=== PATIENT | female | born 1955 | race Caucasian/White ===

== ENCOUNTER 2016-12-19 09:56 | Inpatient (IN) | payer BC, OTHER ==
[2016-12-19] MEDS: NORMAL SALINE 10 ML SYRINGE FLUSH IVP PRN ×3 (10:08→10:24)
[2016-12-19] MEDS ORDERED: ONDANSETRON 4 MG/2 ML VIAL IVP ONE (10:12)
[2016-12-19] MEDS ORDERED: Sodium Chloride 0.9% 1,000 ML, Magnesium Sulfate 2gm (Premix) 50 ML with Multivitamin I... IV ONE ×5 (10:12)
[2016-12-19] MEDS ORDERED: Sodium Chloride 0.9% 1,000 ML with Multivitamin Inj 10 ML, Thiamine Inj 100 MG, Folic A... IV ONE ×5 (10:15)
[2016-12-19] MEDS ORDERED: LORazepam 2 MG/1 ML VIAL IVP ONE ×2 (10:20→12:38)
--- NOTE | 2016-12-19 10:20 | PDOC ---
Gen Adult / Medical Screen HPI - General Chief Complaint: General Medical Stated Complaint: Detox Date Seen by Provider: 12/19/16 Time Seen by Provider: 10:14 Source: POSITIVE: Patient Exam Limitations: POSITIVE: No limitations Nurse's Notes Reviewed & Considered: Yes - Indicators Temperature Between 95 and 101 Degrees: Yes Respirations Between 12 and 20: Yes Blood Pressure Between 100-165 (sys) and 60-100 (deng): Yes Pulse Range Between 60-105 (100 for age > 60 years): Yes Severe Pain (Greater than 5/10 Reported): No Chest or Abdominal Pain: No Inability to Walk: No Pt Reports Active High Risk Cond. (TB/Hepatitis/HIV/Chemo): No Abnormal Mental Status: No - History of Present Illness Initial Comments: Patient comes in today wanting to detox from alcohol. Patient had her last drink at 2000 hrs. last night. She started drinking yesterday at approximately 1 PM during tilt 1999 hrs. and drank a pint of tequila. She drinks every day, usually tequila. Now she is having shakiness, nausea. Denies any fever chills sweats, no diarrhea, no chest pain or shortness of breath, no hematuria or dysuria. Timing: REPORTS: Gradual Duration: 4-6 hours Similar Symptoms Previously: Yes (withdrawal from alcohol) Recent Care Received: REPORTS: Denies Any Prior Injuries Related to Current Complaint?: No - Patient Home Medications Home Medications: Home Medications Estradiol 1 mg PO DAILY 12/19/16 Valsartan/Hydrochlorothiazide [Valsartan-Hctz 160-12.5 mg Tab] 1 each PO DAILY 12/19/16 - Patient Allergies Allergies/Adverse Reactions: Allergies Allergy/AdvReac Type Severity Reaction Status Date / Time No Known Allergies Allergy Verified 12/19/16 10:00 Past Medical History - heen HEENT History: Denies History Cardiovascular History: Hypertension Respiratory History: Other (please comment) Additional Respiratory History: previous smoker Gastrointestinal History: Denies History Genitourinary History: Denies History Endocrine History: Denies History Musculoskeletal History: Denies History Neurological History: Denies History Blood Disorders: Denies History Psychiatric History: Substance Abuse Female Reproductive History: Hysterectomy Obstetrical History: Denies History Cancer History: Denies History In Past Year Been Physically Harmed or Verbally Threatened: No History of MDRO: No Tobacco Use: Former Smoker Alcohol Use: Heavy Type of alcohol normally used: Hard Liquor How much alcohol do you normally drink a day?: 1+ mamie canales daily Substance Use Type: None Previous Surgical History: Yes Type / Date of Surgery: hyster. left knee. tonsils Significant Family History: No pertinent family hx ROS - Limitations ROS Limitations: No Limitations Constitution: REPORTS: Denies Symptoms Cardiovascular: REPORTS: Denies Cardiac Symptoms Respiratory: REPORTS: Denies Resp Symptoms Neurological: REPORTS: Other (Tremulousness) Gastrointestinal: REPORTS: Nausea Endocrine: REPORTS: Denies Symptoms Musculoskeletal: REPORTS: Denies MS Symptoms Genitourinary: REPORTS: Denies Symptoms Eyes: REPORTS: Denies Symptoms ENT: REPORTS: Denies Symptoms Skin: REPORTS: Denies Skin Symptoms Lympathic: REPORTS: Denies Lympathic Symptoms Immunologic: POSITIVE: Denies Symptoms Psychiatric: POSITIVE: Anxiety Gen Adult/Medical Screen Exam - General Appearance General Appearance: POSITIVE: Alert, Cooperative, No Evidence of Trauma, Anxious - HEENT HEENT: POSITIVE: Head Inspection Nml, Eyes Inspection Nml, Ears Inspection Nml, Nose Inspection Nml, Oral/Dental Inspect. Nml, Pharynx Inspect. Nml, PERRL, EOMI - Pupils Pupil Size: 5 mm: Bilateral - Neck Neck: POSITIVE: Normal Inspection, Thyroid Normal - Respiratory Respiratory: POSITIVE: No Respiratory Distress, Breath Sounds Normal, Chest Non- Tender - Cardiovascular Cardiovascular: POSITIVE: Regular Rate & Rhythm, No Murmur, No Gallop, PMI Normal Peripheral Pulses: Radial (R): 2+, Radial (L): 2+ - Abdomen Abdomen: Soft: (All Quadrants), Normal Bowel Sounds: (All Quadrants), Denies Tenderness: (All Quadrants), No Splenomegaly: (All Quadrants), No Hepatomegaly: (All Quadrants) - Back Back: POSITIVE: Normal Inspection - Neurological / Psychological Mental Status: POSITIVE: Mood Normal, Affect Normal Orientation: POSITIVE: Oriented x 3 Reflexes: Patellar (R): 3+, Patellar (L): 3+, Radial (R): 3+, Radial (L): 3+ - Skin Skin: POSITIVE: Normal Color, Warm, Dry, No Rash - Extremities Extremity: Non-Tender: (All Extremities), Normal ROM: (All Extremities), Normal Inspection: (All Extremities) Procedures - Laceration/Wound Repair Did patient have a laceration repair: No Gen Adlt/Medical Scrn Progress - Results Reviewed by me Lab Results Reviewed: Yes Lab Results:: Laboratory Results 12/19/16 Range/Units 10:08 WBC 4.49 L (4.8-10.8) 10^3/uL RBC 4.31 (4.20-5.40) 10^6/uL Hgb 13.6 (12.0-16.0) g/dL Hct 39.5 (37.0-47.0) % MCV 91.6 (81-99) FL MCH 31.6 H (27-31) PG MCHC 34.4 (33-37) g/dL RDW Std Deviation 50.8 H (39-50) fL RDW Coeff of Stevan 15.5 H (11.5-14.5) % Plt Count 236 (140-350) 10*3/uL MPV 9.8 (7.4-12.2) FL Immature Gran % (Auto) 0.2 (0-5) % Neut % (Auto) 55.5 (50-80) % Lymph % (Auto) 37.4 (10-50) % [place] % (Auto) 5.3 (5-15) % Eos % (Auto) 0.9 (0-8) % Baso % (Auto) 0.7 (0-1) % Immature Gran # (Auto) 0.01 10*3/UL Neut # (Auto) 2.49 10*3/UL Lymph # (Auto) 1.68 10*3/uL [place] # (Auto) 0.24 L (0.3-0.8) 10*3/UL Eos # (Auto) 0.04 10*3/UL Baso # (Auto) 0.03 10*3/UL WBC Morphology Comment Normal morphology (NORM) Plt Morphology Comment Normal morphology (NORM) RBC Morph Comment Normal morphology (NORM) Sodium 138 (135-145) meq/L Potassium 4.4 (3.8-5.2) meq/L Chloride 98 (98-112) meq/L Carbon Dioxide 25 (23-33) meq/L Anion Gap 15 (5-20) BUN 25 H (7-22) mg/dL Creatinine 0.8 (0.50-1.20) mg/dL Estimated GFR > 60 (>60 ml/min/1.73m(2)) BUN/Creatinine Ratio 31.25 H (6-20) Glucose 119 H (78-110) mg/dL Calculated Osmolality 290.0 (267-292) mOsm/kg Calcium 9.7 (8.7-10.7) mg/dL Magnesium 1.7 (1.6-2.4) mg/dL Total Bilirubin 1.2 (0.3-1.2) mg/dL AST 167 H (8-39) IU/L ALT 87 H (9-52) IU/L Alkaline Phosphatase 107 (38-126) IU/L Total Protein 7.5 (6.1-8.0) g/dL Albumin 4.6 (3.5-4.8) g/dL Globulin 2.9 (2.50-4.10) g/dL Albumin/Globulin Ratio 1.50 (1.3-2.0) mg/g TSH 0.328 (0.2700-4.2000) uIU/mL Free T4 1.02 (0.93-1.71) ng/dL Serum Alcohol 44 H (0-10) mg/dL - Patient's Progress Pain Medication Addressed: POSITIVE: Not Applicable Re-Examine Time: 12:39 Status: POSITIVE: Unchanged MDM / ED Course: Patient was examined, an IV started, with blood drawn and sent to the lab for studies. Review of her EKG is unremarkable review of her labs are unremarkable , she continued to have anxiety requiring multiple doses of Ativan to control her anxiety. Assessment: Acute alcohol withdrawal. Plan: Admission. - Consult Consult (If Yes, Name of Consulting MD & Time Called): Yes (Dr Lao) Consulting MD will see pt:: POSITIVE: [facility] [place] Admit Counseled: POSITIVE: Patient, RE: DX Patient Care Time - Estimated PCT Patient Care Time (In Minutes): 30 Vital Signs - Recent Vital Signs Vital Signs: Vital Signs (Last 8 hours) Temp Pulse Resp BP Pulse Ox 12/19/16 09:58 97.5 F 105 H 18 151/99 92 - VS Reviewed Vital Signs Reviewed: Yes Discharge Clinical Impression: Alcohol withdrawal Discharge Disposition: Admit to Observation Condition: Stable Follow Up With: NONE,NONE [Primary Care Provider] - Date Decision to Admit to Inpatient: 12/19/16 Time Decision to Admit to Inpatient: 12:41
[2016-12-19 10:25] LABS: BASOPHILS # (AUTO) 0.03 10*3/UL; BASOPHILS % (AUTO) 0.7 % (0-1); EOSINOPHILS % (AUTO) 0.9 % (0-8); HEMATOCRIT 39.5 % (37.0-47.0); HEMOGLOBIN 13.6 g/dL (12.0-16.0); IMM GRAN % (AUTO) 0.2 % (0-5); IMM GRAN# (AUTO) 0.01 10*3/UL; LYMPHOCYTES # (AUTO) 1.68 10*3/uL; LYMPHOCYTES % (AUTO) 37.4 % (10-50); MEAN CORPUSCULAR HEMOGLOBIN 31.6 PG (27-31); MEAN CORPUSCULAR HGB CONC 34.4 g/dL (33-37); MEAN PLATELET VOLUME 9.8 FL (7.4-12.2); MONOCYTES # (AUTO) 0.24 10*3/UL (0.3-0.8); MONOCYTES % (AUTO) 5.3 % (5-15); NEUTROPHILS # (AUTO) 2.49 10*3/UL; NEUTROPHILS % (AUTO) 55.5 % (50-80); RDW COEFFICIENT OF VARIATION 15.5 % (11.5-14.5); RED BLOOD COUNT 4.31 10^6/uL (4.20-5.40); WHITE BLOOD COUNT 4.49 10^3/uL (4.8-10.8)
[2016-12-19 10:30] LABS: ASPARTATE AMINO TRANSFERASE 167 IU/L (8-39); BILIRUBIN,TOTAL 1.2 mg/dL (0.3-1.2); BLOOD UREA NITROGEN 25 mg/dL (7-22); BUN/CREATININE RATIO 31.25 (6-20); CALCIUM 9.7 mg/dL (8.7-10.7); CHLORIDE 98 meq/L (98-112); CREATININE 0.8 mg/dL (0.50-1.20); EST GLOMERULAR FILTRATION > 60 (>60 ml/min/1.73m(2)); GLUCOSE 119 mg/dL (78-110); MAGNESIUM 1.7 mg/dL (1.6-2.4); PLATELET MORPHOLOGY COMMENT NORMAL MORPHOLOGY (NORM); POTASSIUM 4.4 meq/L (3.8-5.2); SERUM ALCOHOL 44 mg/dL (0-10); SODIUM 138 meq/L (135-145); TOTAL PROTEIN 7.5 g/dL (6.1-8.0)
[2016-12-19 11:01] LABS: FREE T4 (FREE THYROXINE) 1.02 ng/dL (0.93-1.71)
[2016-12-19 12:52] LABS: CANNABINOID SCREEN,URINE NEGATIVE (NEG); COCAINE SCREEN NEGATIVE (NEG); METHAMPHETAMINES SCREEN,URINE NEGATIVE (NEG); URINE SAMPLE TYPE CLEAN CATCH URINE; URINE SPECIFIC GRAVITY - MAN 1.022
--- NOTE | 2016-12-19 13:21 | PDOC ---
History and Physical - History of Present Illness History of Present Illness: There is a very nice 60-year-old female from [place] presented to the ER with alcohol withdrawal past medical history is significant for cocaine, crack, marijuana use when she was young in her 20s tried heroin 1 time but no other IV drugs started drinking a few years ago she drinks a pint of tequila a day was sober for 6 months then restarted she did go withdrawals once before and did not need any intubation denies chest pain nausea vomiting at present time she is mildly tremulous Past Medical History Medical History: Hypertension, previous the drug use when she was young cocaine and marijuana crack and she did use heroin 1 time Family History: Reviewed an Not Pertinent Tobacco Use: Former Smoker Substance Use Type: None Medication / Allergies Home Medications: Home Medications Medication Instructions Recorded Confirmed Type Estradiol 1 mg PO DAILY 12/19/16 12/19/16 History Valsartan/Hydrochlorothiazide 1 each PO DAILY 12/19/16 12/19/16 History [Valsartan-Hctz 160-12.5 mg Tab] Allergies/Adverse Reactions: Allergies Allergy/AdvReac Type Severity Reaction Status Date / Time No Known Allergies Allergy Verified 12/19/16 10:00 Review of Systems - Review of Systems All Systems: Reviewed & No Additional Complaints Except as Stated - Respiratory Respiratory: DENIES: Negative System Review, Cough, Sputum, Dyspnea At Rest, Dyspnea with Exertion, Pleuritic Pain, Hemoptysis, Wheezing, Other, See HPI - Cardiovascular Cardiovascular: DENIES: Negative System Review, Chest Pain, Edema, Syncope, Palpitations, Orthopnea, Paroxysmal Nocturnal Dyspnea, Other, See HPI - Gastrointestinal Gastrointestinal / Abdominal: REPORTS: Nausea - Neurological Neurologic: REPORTS: Tremors Exam - Vitals Vital Signs: Vital Signs Temperature 97.5 F Temperature Source Temporal Artery Scan Pulse Rate [Pulse Oximeter] 102 Respiratory Rate 16 Blood Pressure [Left Arm] 117/71 Pulse Ox 95 Oxygen Delivery Method Nasal Cannula Height 5 ft 7 in Weight 72.575 kg - General General Appearance: POSITIVE: No Acute Distress, Cooperative - Head Head Exam: POSITIVE: Normal Inspection, Normocephalic, Atraumatic - Neck Neck Exam: POSITIVE: Normal Inspection - Respiratory Respiratory Exam: POSITIVE: Clear to Auscultation - Bilaterally, Breathing Non Labored, Normal To Percussion - Cardiovascular Cardiovascular Exam: POSITIVE: RRR, No Murmur, No Clicks, No Gallops - GI/Abdominal GI/Abdominal Exam: POSITIVE: Normal Bowel Sounds, Non Tender, Non Distended, Soft - Extremities Extremities Exam: POSITIVE: Normal Inspection, No Clubbing Present, No Edema Present - Back Back Exam: POSITIVE: Normal Inspection - Neurological Neurological Exam: POSITIVE: Alert, Oriented x 3, CN II-XII Intact, No Facial Droop Results - Labs CBC and BMP: 12/19/16 10:08 12/19/16 10:08 Labs - Last 24 Hours: Laboratory Results 12/19/16 12/19/16 Range/Units 10:08 12:30 WBC 4.49 L (4.8-10.8) 10^3/uL RBC 4.31 (4.20-5.40) 10^6/uL Hgb 13.6 (12.0-16.0) g/dL Hct 39.5 (37.0-47.0) % MCV 91.6 (81-99) FL MCH 31.6 H (27-31) PG MCHC 34.4 (33-37) g/dL RDW Std Deviation 50.8 H (39-50) fL RDW Coeff of Stevan 15.5 H (11.5-14.5) % Plt Count 236 (140-350) 10*3/uL MPV 9.8 (7.4-12.2) FL Immature Gran % (Auto) 0.2 (0-5) % Neut % (Auto) 55.5 (50-80) % Lymph % (Auto) 37.4 (10-50) % [place] % (Auto) 5.3 (5-15) % Eos % (Auto) 0.9 (0-8) % Baso % (Auto) 0.7 (0-1) % Immature Gran # (Auto) 0.01 10*3/UL Neut # (Auto) 2.49 10*3/UL Lymph # (Auto) 1.68 10*3/uL [place] # (Auto) 0.24 L (0.3-0.8) 10*3/UL Eos # (Auto) 0.04 10*3/UL Baso # (Auto) 0.03 10*3/UL WBC Morphology Comment Normal morphology (NORM) Plt Morphology Comment Normal morphology (NORM) RBC Morph Comment Normal morphology (NORM) Sodium 138 (135-145) meq/L Potassium 4.4 (3.8-5.2) meq/L Chloride 98 (98-112) meq/L Carbon Dioxide 25 (23-33) meq/L Anion Gap 15 (5-20) BUN 25 H (7-22) mg/dL Creatinine 0.8 (0.50-1.20) mg/dL Estimated GFR > 60 (>60 ml/min/1.73m(2)) BUN/Creatinine Ratio 31.25 H (6-20) Glucose 119 H (78-110) mg/dL Calculated Osmolality 290.0 (267-292) mOsm/kg Calcium 9.7 (8.7-10.7) mg/dL Magnesium 1.7 (1.6-2.4) mg/dL Total Bilirubin 1.2 (0.3-1.2) mg/dL AST 167 H (8-39) IU/L ALT 87 H (9-52) IU/L Alkaline Phosphatase 107 (38-126) IU/L Total Protein 7.5 (6.1-8.0) g/dL Albumin 4.6 (3.5-4.8) g/dL Globulin 2.9 (2.50-4.10) g/dL Albumin/Globulin Ratio 1.50 (1.3-2.0) mg/g TSH 0.328 (0.2700-4.2000) uIU/mL Free T4 1.02 (0.93-1.71) ng/dL Ur Collection Type Clean catch urine U Specif Grav (Refrac) 1.022 Urine Opiates Screen Negative (NEG) Ur Buprenorphine Negative (NEG) Ur Oxycodone Screen Negative (NEG) Urine Methadone Screen Negative (NEG) Ur Propoxyphene Screen Negative (NEG) Barbiturate Screen Negative (NEG) U Tricyclic Antidepress Negative (NEG) Phencyclidine Screen Negative (NEG) Amphetamines Screen Negative (NEG) U Methamphetamines Scrn Negative (NEG) Benzodiazepines Screen Negative (NEG) Cocaine Screen Negative (NEG) U Marijuana (THC) Screen Negative (NEG) Serum Alcohol 44 H (0-10) mg/dL Assessment and Plan - Patient Problems (1) Alcohol withdrawal Current Visit: Yes Status: Acute Comment: CIWA scale with Ativan and thiamine 3 days and a banana bags she did have one time use of heroin we'll check hepatitis panel HIV test cussed with patient (2) Hypertension Current Visit: Yes Status: Acute Comment: Continue current medication
[2016-12-19] MEDS ORDERED: MAG HYDROX/AL HYDROX/SIMETH 30 ML SUSP PO PRN (13:42)
[2016-12-19] MEDS ORDERED: NORMAL SALINE 10 ML SYRINGE FLUSH IVP PRN (13:42)
[2016-12-19] MEDS ORDERED: Loperamide Tab 2 MG TABLET PO PRN (13:42)
[2016-12-19] MEDS ORDERED: MAGNESIUM 400 MG/5 ML - 30 ML (MILK OF MAGNESIA) PO PRN (13:42)
[2016-12-19] MEDS ORDERED: ONDANSETRON 4 MG/2 ML VIAL IV PRN (13:42)
[2016-12-19] MEDS ORDERED: LORazepam Inj(ETOH withdrawal) 2 MG/ML VIAL IVP PRN ×2 (13:42)
[2016-12-19 14:57] LABS: HIV ANTIBODY NEGATIVE (N); HIV-1 P24 ANTIGEN NEGATIVE (N)
[2016-12-19] MEDS: HEPARIN 5000 UNIT/1 ML SUBCUT SCH (16:48)
[2016-12-19] MEDS: D5-1/2NS + 40mEq KCL 1,000 ML PRIMARY IV SCH (18:21)
[2016-12-19] MEDS ORDERED: DIAZEPAM 5 MG TABLET PO ONE (21:30)
[2016-12-19] MEDS: MAGNESIUM OXIDE 400 MG TABLET PO SCH (21:51)
[2016-12-20] MEDS: HEPARIN 5000 UNIT/1 ML SUBCUT SCH ×2 (02:11→08:02)
[2016-12-20] MEDS: D5-1/2NS + 40mEq KCL 1,000 ML PRIMARY IV SCH ×2 (02:12→10:05)
[2016-12-20 06:23] LABS: BASOPHILS # (AUTO) 0.02 10*3/UL; BASOPHILS % (AUTO) 0.7 % (0-1); EOSINOPHILS % (AUTO) 2.4 % (0-8); HEMATOCRIT 36.4 % (37.0-47.0); HEMOGLOBIN 11.9 g/dL (12.0-16.0); IMM GRAN % (AUTO) 0 % (0-5); IMM GRAN# (AUTO) 0 10*3/UL; LYMPHOCYTES # (AUTO) 1.28 10*3/uL; LYMPHOCYTES % (AUTO) 43.1 % (10-50); MEAN CORPUSCULAR HEMOGLOBIN 30.8 PG (27-31); MEAN CORPUSCULAR HGB CONC 32.7 g/dL (33-37); MEAN PLATELET VOLUME 9.9 FL (7.4-12.2); MONOCYTES # (AUTO) 0.13 10*3/UL (0.3-0.8); MONOCYTES % (AUTO) 4.4 % (5-15); NEUTROPHILS # (AUTO) 1.47 10*3/UL; NEUTROPHILS % (AUTO) 49.4 % (50-80); RDW COEFFICIENT OF VARIATION 15.3 % (11.5-14.5); RED BLOOD COUNT 3.86 10^6/uL (4.20-5.40); WHITE BLOOD COUNT 2.97 10^3/uL (4.8-10.8)
[2016-12-20 06:31] LABS: PLATELET MORPHOLOGY COMMENT NORMAL MORPHOLOGY (NORM)
[2016-12-20 06:36] LABS: ASPARTATE AMINO TRANSFERASE 92 IU/L (8-39); BILIRUBIN,TOTAL 1.2 mg/dL (0.3-1.2); BLOOD UREA NITROGEN 19 mg/dL (7-22); BUN/CREATININE RATIO 31.66 (6-20); CALCIUM 8.2 mg/dL (8.7-10.7); CHLORIDE 99 meq/L (98-112); CREATININE 0.6 mg/dL (0.50-1.20); EST GLOMERULAR FILTRATION > 60 (>60 ml/min/1.73m(2)); GLUCOSE 128 mg/dL (78-110); POTASSIUM 4.6 meq/L (3.8-5.2); SODIUM 134 meq/L (135-145); TOTAL PROTEIN 5.9 g/dL (6.1-8.0)
[2016-12-20 06:40] LABS: LACTATE < 0.5 MMOL/L (0.70-2.10)
[2016-12-20] MEDS: MAGNESIUM OXIDE 400 MG TABLET PO SCH (08:57)
[2016-12-20] MEDS ORDERED: THIAMINE 100 MG/1 ML - 2 ML IM SCH (09:00)
[2016-12-20] MEDS ORDERED: HYDROCHLOROTHIAZIDE 12.5 MG CAPSULE PO SCH (09:00)
[2016-12-20] MEDS ORDERED: Valsartan Tab 160 MG TAB PO SCH (09:00)
[2016-12-20 09:25] VITALS: RESP 12; TEMP 97.7
--- NOTE | 2016-12-20 10:12 | PDOC(PROG) ---
Date and Time of Service: 12/20/2016 10 AM Interval History: Subjective Patient feels much better, she is denying withdrawal symptoms. She wants to go home. She said she had previous problem with alcohol and she managed to quit on her own. The last 3 weeks she started drinking again, last time she had a drink was on Sunday night. Today she doesn't have shakes, no nausea, tolerated her diet and she wants to go home.she said she had good support system to help her overcome her alcoholism. Objective : Data - Labs CBC and BMP: 12/20/16 05:55 12/20/16 05:55 Labs - Last 24 Hours: Laboratory Results 12/20/16 Range/Units 05:55 WBC 2.97 L (4.8-10.8) 10^3/uL RBC 3.86 L (4.20-5.40) 10^6/uL Hgb 11.9 L (12.0-16.0) g/dL Hct 36.4 L (37.0-47.0) % MCV 94.3 (81-99) FL MCH 30.8 (27-31) PG MCHC 32.7 L (33-37) g/dL RDW Std Deviation 51.5 H (39-50) fL RDW Coeff of Stevan 15.3 H (11.5-14.5) % Plt Count 165 (140-350) 10*3/uL MPV 9.9 (7.4-12.2) FL Immature Gran % (Auto) 0 (0-5) % Neut % (Auto) 49.4 L (50-80) % Lymph % (Auto) 43.1 (10-50) % [place] % (Auto) 4.4 L (5-15) % Eos % (Auto) 2.4 (0-8) % Baso % (Auto) 0.7 (0-1) % Immature Gran # (Auto) 0 10*3/UL Neut # (Auto) 1.47 10*3/UL Lymph # (Auto) 1.28 10*3/uL [place] # (Auto) 0.13 L (0.3-0.8) 10*3/UL Eos # (Auto) 0.07 10*3/UL Baso # (Auto) 0.02 10*3/UL WBC Morphology Comment Normal morphology (NORM) Plt Morphology Comment Normal morphology (NORM) RBC Morph Comment Normal morphology (NORM) Sodium 134 L (135-145) meq/L Potassium 4.6 (3.8-5.2) meq/L Chloride 99 (98-112) meq/L Carbon Dioxide 28 (23-33) meq/L Anion Gap 7 (5-20) BUN 19 (7-22) mg/dL Creatinine 0.6 (0.50-1.20) mg/dL Estimated GFR > 60 (>60 ml/min/1.73m(2)) BUN/Creatinine Ratio 31.66 H (6-20) Glucose 128 H (78-110) mg/dL Calculated Osmolality 281.0 (267-292) mOsm/kg Lactic Acid < 0.5 L (0.70-2.10) MMOL/L Calcium 8.2 L (8.7-10.7) mg/dL Total Bilirubin 1.2 (0.3-1.2) mg/dL AST 92 H (8-39) IU/L ALT 59 H (9-52) IU/L Alkaline Phosphatase 73 (38-126) IU/L Total Protein 5.9 L (6.1-8.0) g/dL Albumin 3.4 L (3.5-4.8) g/dL Globulin 2.5 (2.50-4.10) g/dL Albumin/Globulin Ratio 1.30 (1.3-2.0) mg/g Objective : Exam - General General Appearance: No Acute Distress, Cooperative - Head Head Exam: Normal Inspection - Eye Eye Exam: Normal Appearance - ENT ENT Exam: Normal Exam - Neck Neck Exam: Normal Inspection - Respiratory Respiratory Exam: Clear to Auscultation - Bilaterally - Cardiovascular Cardiovascular Exam: RRR - GI/Abdominal GI/Abdominal Exam: Normal Bowel Sounds, Non Tender, Non Distended, Soft - Rectal Rectal Exam: Deferred - External Exam: Deferred - Extremities Extremities Exam: Normal Inspection Additional Extremities Exam Details: No tremor noted in the hands - Back Back Exam: Normal Inspection - Neurological Neurological Exam: Alert, Oriented x 3, CN II-XII Intact, Moves All Extremities Equally - Psychiatric Psychiatric Exam: Normal Affect Assessment and Plan - Patient Problems (1) Alcohol withdrawal Status: Acute Comment: Seem to be resolved. Last time she took Ativan was last night. And she had only one dosage. I think can discharge her home. Follow-up with her primary. (2) Hypertension Status: Acute Comment: Same med
--- NOTE | 2016-12-20 12:30 | DCSUMMARY ---
Hospitalization Summary Admit Date: 12/19/16 Discharge Date: 12/20/16 Hospital Course: Discharge instructions 1. Alcohol withdrawal 2. Alcoholism 3. Hypertension Hospital course This is a 60 years old female with medical history significant for history of hypertension, who presented to the ER because of alcohol withdrawal, she had a history of alcoholism and she managed to stay sober for about 6 months then she started drinking again about 3 weeks ago she's been drinking heavily and she came in requesting help with alcohol withdrawal and because of that she was admitted to the hospital. She was admitted by Dr. Lao please see his note. Exam was not remarkable when he saw her. She was put on CIWA protocol. She was given fluids and multivitamins. I saw her the next day she had only one dosage of Ativan. Exam was not remarkable she wanted to go home. She said she had a good support system at home she plan to quit drinking. we thought that she could be discharged home and follow-up with her primary as an outpatient. Did give him a few pills of Ativan as in case she has some withdrawal symptoms. Did advise her not to drink while taking these medications as this may affect her respiration and may lead to . Laboratory Results 12/19/16 12/19/16 12/20/16 Range/Units 10:08 12:30 05:55 WBC 4.49 L 2.97 L (4.8-10.8) 10^3/uL RBC 4.31 3.86 L (4.20-5.40) 10^6/uL Hgb 13.6 11.9 L (12.0-16.0) g/dL Hct 39.5 36.4 L (37.0-47.0) % MCV 91.6 94.3 (81-99) FL MCH 31.6 H 30.8 (27-31) PG MCHC 34.4 32.7 L (33-37) g/dL RDW Std Deviation 50.8 H 51.5 H (39-50) fL RDW Coeff of Stevan 15.5 H 15.3 H (11.5-14.5) % Plt Count 236 165 (140-350) 10*3/uL MPV 9.8 9.9 (7.4-12.2) FL Immature Gran % (Auto) 0.2 0 (0-5) % Neut % (Auto) 55.5 49.4 L (50-80) % Lymph % (Auto) 37.4 43.1 (10-50) % [place] % (Auto) 5.3 4.4 L (5-15) % Eos % (Auto) 0.9 2.4 (0-8) % Baso % (Auto) 0.7 0.7 (0-1) % Immature Gran # (Auto) 0.01 0 10*3/UL Neut # (Auto) 2.49 1.47 10*3/UL Lymph # (Auto) 1.68 1.28 10*3/uL [place] # (Auto) 0.24 L 0.13 L (0.3-0.8) 10*3/UL Eos # (Auto) 0.04 0.07 10*3/UL Baso # (Auto) 0.03 0.02 10*3/UL WBC Morphology Comment Normal morphology Normal morphology (NORM) Plt Morphology Comment Normal morphology Normal morphology (NORM) RBC Morph Comment Normal morphology Normal morphology (NORM) Sodium 138 134 L (135-145) meq/L Potassium 4.4 4.6 (3.8-5.2) meq/L Chloride 98 99 (98-112) meq/L Carbon Dioxide 25 28 (23-33) meq/L Anion Gap 15 7 (5-20) BUN 25 H 19 (7-22) mg/dL Creatinine 0.8 0.6 (0.50-1.20) mg/dL Estimated GFR > 60 > 60 (>60 ml/min/1.73m(2)) BUN/Creatinine Ratio 31.25 H 31.66 H (6-20) Glucose 119 H 128 H (78-110) mg/dL Calculated Osmolality 290.0 281.0 (267-292) mOsm/kg Lactic Acid < 0.5 L (0.70-2.10) MMOL/L Calcium 9.7 8.2 L (8.7-10.7) mg/dL Magnesium 1.7 (1.6-2.4) mg/dL Total Bilirubin 1.2 1.2 (0.3-1.2) mg/dL AST 167 H 92 H (8-39) IU/L ALT 87 H 59 H (9-52) IU/L Alkaline Phosphatase 107 73 (38-126) IU/L Total Protein 7.5 5.9 L (6.1-8.0) g/dL Albumin 4.6 3.4 L (3.5-4.8) g/dL Globulin 2.9 2.5 (2.50-4.10) g/dL Albumin/Globulin Ratio 1.50 1.30 (1.3-2.0) mg/g TSH 0.328 (0.2700-4.2000) uIU/mL Free T4 1.02 (0.93-1.71) ng/dL Ur Collection Type Clean catch urine U Specif Grav (Refrac) 1.022 Urine Opiates Screen Negative (NEG) Ur Buprenorphine Negative (NEG) Ur Oxycodone Screen Negative (NEG) Urine Methadone Screen Negative (NEG) Ur Propoxyphene Screen Negative (NEG) Barbiturate Screen Negative (NEG) U Tricyclic Antidepress Negative (NEG) Phencyclidine Screen Negative (NEG) Amphetamines Screen Negative (NEG) U Methamphetamines Scrn Negative (NEG) Benzodiazepines Screen Negative (NEG) Cocaine Screen Negative (NEG) U Marijuana (THC) Screen Negative (NEG) Serum Alcohol 44 H (0-10) mg/dL HIV 1&2 Antibody Rapid Negative (N) HIV P24 Antigen Negative (N) Discharge instruction Diet regular Activity as started Medications Home Medications Medication Instructions Recorded Confirmed Type RX: Estradiol 1 mg PO DAILY 12/19/16 12/19/16 History RX: Valsartan/Hydrochlorothiazide 1 each PO DAILY 12/19/16 12/19/16 History [Valsartan-Hctz 160-12.5 mg Tab] LORazepam Tab [Ativan Tab] 1 mg PO DAILY PRN #4 tablet 12/20/16 Rx RX: Multivitamin Tab [Thera Tab] 1 each PO DAILY #1 tablet 12/20/16 Rx Follow-up with her PCP in 1-2 weeks Condition at discharge was stable for discharge Exam - Vitals Vital Signs: Vital Signs Temperature 97.7 F Temperature Source Temporal Artery Scan Pulse Rate [Telemetry] 76 Pulse Rate [Apical] 92 Pulse Rate [Pulse Oximeter] 72 Pulse Rate 75 Respiratory Rate 12 Blood Pressure [Left Arm] 122/93 Blood Pressure 120/96 Pulse Ox 94 Oxygen Flow Rate 2L Oxygen Delivery Method Nasal Cannula Height 5 ft 7 in Weight 191 lb 3.2 oz Patient Problems - Patient Problem List (1) Alcohol withdrawal Status: Acute (2) Hypertension Status: Acute
[2016-12-21 10:56] LABS: HEP B CORE IGM ANTIBODY Negative (Negative); HEPATITIS B SURFACE AG Negative (Negative)
[2016-12-21 11:39] LABS: HEPATITIS C ANTIBODY SCREEN Negative (Negative)
== END 2016-12-20 11:49 | disposition home or self-care (01) | DRG 897 ==
LOC: ER 09:56 → MED/SURG 13:09
PROVIDERS: ADMIT Internal Medicine; ATTEND Internal Medicine
DX: F10.239 Alcohol dependence with withdrawal, unspecified (principal); I10 Essential (primary) hypertension; F10.20 Alcohol dependence, uncomplicated
CPT/HCPCS: 36000; 36415; 80053; 80305; 80320; 83605; 83735; 84439; 84443; 85025; 86703; 86705; 86709; 86803; 87340; 94761; 99283; J1644; J2060; J2405; J3411; J3475; J7030